=== PATIENT | male | born 1955 | race Caucasian/White ===

== ENCOUNTER 2018-10-05 16:01 | Emergency (ER) | payer BC, MEDICARE ==
[2018-10-05 16:39] LABS: BASOPHILS % (AUTO) 0.2 %; EOSINOPHILS # (AUTO) 0.1 10^3/uL (0.0-0.7); EOSINOPHILS % (AUTO) 0.8 %; HGB - HEMOGLOBIN 13.7 g/dL (14.0-18.0); LYMPHOCYTES # (AUTO) 1.8 10^3/uL (1.5-3.5); LYMPHOCYTES % (AUTO) 20.9 %; MEAN CORPUSCULAR VOLUME 88.3 fL (80.0-94.0); MEAN PLATELET VOLUME 7.4 fL (7.4-11.4); MONOCYTES # (AUTO) 0.7 10^3/uL (0.0-1.0); MONOCYTES % (AUTO) 8.1 %; PLT - PLATELET COUNT 198 10^3/uL (130-450); RED BLOOD COUNT 4.55 10^6/uL (4.70-6.10); RED CELL DISTRIBUTION WIDTH 14.1 % (12.0-15.0); WHITE BLOOD COUNT 8.6 x10^3/uL (4.8-10.8)
[2018-10-05 16:45] LABS: ALBUMIN 4.1 g/dL (3.2-5.5); ALBUMIN/GLOBULIN RATIO 1.2 (1.0-2.2); BILIRUBIN,TOTAL 0.8 mg/dL (0.2-1.0); CALCIUM 9.1 mg/dL (8.5-10.3); CREATININE 0.9 mg/dL (0.6-1.2); TOTAL PROTEIN 7.4 g/dL (6.7-8.2)
--- NOTE | 2018-10-05 18:39 | ED Physician Documentation ---
PD HPI ABD PAIN - Stated complaint Stated Complaint: AB PX - Chief complaint Chief Complaint: Abd Pain - History obtained from History obtained from: Patient - History of Present Illness Timing - onset: How many days ago (4-5) Timing - duration: Days (4-5) Timing - details: Gradual onset (some cramping pains for few days that then increased more last night. Is moderate this morning. Pain lower to upper left.) Quality: Cramping, Aching Location: LUQ, LLQ Radiation: No: Lower back, Left flank Associated symptoms: No: Fever, Nausea, Vomiting, Constipation Similar symptoms before: Diagnosis (feels similar to couple episodes d iverticulitis he has had in the past. Both uncomplicated cases.) Review of Systems Constitutional: denies: Fever, Chills, Myalgias Nose: denies: Rhinorrhea / runny nose, Congestion Throat: denies: Sore throat Respiratory: denies: Cough GI: reports: Abdominal Pain. denies: Abdominal Swelling, Nausea, Vomiting, Constipation, Diarrhea : denies: Dysuria, Frequency Skin: denies: Rash PD PAST MEDICAL HISTORY - Past Medical History Past Medical History: Yes Cardiovascular: Hypertension, Coronary artery disease GI: GERD - Past Surgical History Past Surgical History: No - Present Medications Home Medications: Ambulatory Orders Medication Instructions Recorded Confirmed Atenolol 50 mg ORAL BID 05/14/15 10/05/18 Docusate Sodium 100 mg PO DAILY #20 capsule 10/05/18 Furosemide [Lasix] 0 mg PO DAILY 10/05/18 10/05/18 Lisinopril 20 mg PO DAILY 10/05/18 10/05/18 Metronidazole [Flagyl] 500 mg PO BID #14 tablet 10/05/18 Naproxen 500 mg PO BID #14 tablet 10/05/18 Potassium Chloride 0 meq ORAL DAILY 10/05/18 10/05/18 Sulfamethox/Trimeth 800/160 1 each PO BID #14 tablet 10/05/18 [Bactrim Ds 800/160] - Allergies Allergies/Adverse Reactions: Allergies Allergy/AdvReac Type Severity Reaction Status Date / Time meperidine HCl * Allergy Respiratory Verified 05/14/15 05:14 [From Demerol] - Social History Does the pt smoke?: No Smoking Status: Never smoker Does the pt drink ETOH?: Yes Does the pt have substance abuse?: No - Immunizations Immunizations are current?: Yes - POLST Patient has POLST: No PD ED PE NORMAL - Vitals Vital signs reviewed: Yes - General General: Alert and oriented X 3, No acute distress, Well developed/nourished - HEENT HEENT: Pharynx benign - Neck Neck: Supple, no meningeal sign, No adenopathy - Cardiac Cardiac: RRR, No murmur - Respiratory Respiratory: Clear bilaterally - Abdomen Abdomen: Normal bowel sounds, Soft, Non distended, No organomegaly, Other (mild tenderness mid to left abd without guarding, percussion, nor rebound tenderness. ) Results - Vitals Vitals: Oxygen O2 Source Room air - Labs Labs: Laboratory Tests 10/05/18 10/05/18 16:27 16:27 WBC 8.6 RBC 4.55 L Hgb 13.7 L Hct 40.2 L MCV 88.3 MCH 30.0 MCHC 34.0 RDW 14.1 Plt Count 198 MPV 7.4 Neut # (Auto) 6.0 Lymph # (Auto) 1.8 Becker # (Auto) 0.7 Eos # (Auto) 0.1 Baso # (Auto) 0.0 Absolute Nucleated RBC 0.00 Nucleated RBC % 0.0 Sodium 139 Potassium 3.9 Chloride 102 Carbon Dioxide 26 Anion Gap 11.0 BUN 19 Creatinine 0.9 Estimated GFR (MDRD) 85 L Glucose 99 Calcium 9.1 Total Bilirubin 0.8 AST 25 ALT 30 Alkaline Phosphatase 71 Total Protein 7.4 Albumin 4.1 Globulin 3.3 Albumin/Globulin Ratio 1.2 Lipase 38 PD MEDICAL DECISION MAKING - ED course Complexity details: considered differential (has history of diverticulitis and does not have acute abd on exam. Shared decision to treat empirically as diverticulitis. ), d/w patient Departure - Departure Disposition: 01 Home, Self Care Clinical Impression: Diverticulitis Abdominal pain Qualifiers: Abdominal location: left upper quadrant Qualified Code(s): R10.12 - Left upper quadrant pain Condition: Stable Record reviewed to determine appropriate education?: Yes Instructions: Abdominal Pain Follow-Up: Jose Agustin MD [Primary Care Provider] - Prescriptions: Docusate Sodium 100 mg PO DAILY #20 capsule Metronidazole [Flagyl] 500 mg PO BID #14 tablet Naproxen 500 mg PO BID #14 tablet Sulfamethox/Trimeth 800/160 [Bactrim Ds 800/160] 1 each PO BID #14 tablet Comments: Stay well-hydrated. Use naproxen anti-inflammatory twice daily for the next week. You can take with some food. Use a docusate stool softener daily for the next week or so as well. Antibiotics for the diverticulitis, take Bactrim and metronidazole twice daily for a week. Recheck if not improved over the next several days and return sooner if worsening. Discharge Date/Time: 10/05/18 19:28
[2018-10-05] MEDS ORDERED: DOCUSATE SODIUM 100 MG CAPSULE PO STA (19:17)
[2018-10-05] MEDS ORDERED: NAPROXEN 250 MG TABLET PO STA (19:17)
[2018-10-05] MEDS ORDERED: SULFAMETH/TRIMETH DS 800/160 MG TABLET PO STA (19:17)
[2018-10-05] MEDS ORDERED: metroNIDAZOLE 250 MG TABLET PO STA (19:17)
[2018-10-05 19:28] VITALS: BP 161/98
== END 2018-10-05 19:28 | disposition home or self-care (01) ==
LOC: ED 16:01
DX: K57.32 Diverticulitis of large intestine without perforation or abscess without bleeding (principal); K21.9 Gastro-esophageal reflux disease without esophagitis; I10 Essential (primary) hypertension
CPT/HCPCS: 36415; 80053; 83690; 85025; 99283; 99284; A9270

== ENCOUNTER 2020-11-21 16:02 | Outpatient (CLI) | payer BC, MEDICARE ==
[2020-11-21 17:08] LABS: CALCIUM 9.4 mg/dL (8.5-10.3); POTASSIUM 4.2 mmol/L (3.5-5.0)
== END 2020-11-21 16:03 | disposition home or self-care (01) ==
LOC: LAB 16:02
PROVIDERS: ATTEND Internal Medicine Cardiovascular Disease
DX: E86.1 Hypovolemia (principal); I48.0 Paroxysmal atrial fibrillation; R00.2 Palpitations
CPT/HCPCS: 36415; 80048